=== PATIENT | male | born 1950 | race Hispanic/Latino ===

== ENCOUNTER 2018-03-14 08:15 | Day surgery (SDC) | payer OTHER ==
[2018-03-13 12:10] VITALS: BP 140/82
[2018-03-13 12:20] LABS: BASOPHILS % (AUTO) 1.1 % (0.0-5.0); EOSINOPHILS % (AUTO) 3.2 % (0.0-8.0); HEMATOCRIT 44.3 % (42-54); MEAN CORPUSCULAR HEMOGLOBIN 30.5 pg (27.0-33.0); MEAN CORPUSCULAR HGB CONC 34.2 g/dL (32.0-36.0); MEAN CORPUSCULAR VOLUME 89.3 fL (79-99); MONOCYTES % (AUTO) 8.7 % (3.0-13.0); PLATELET COUNT (AUTO) 244 K/uL (130-400); RED BLOOD CELL COUNT(AUTO) 4.96 MIL/uL (4.50-6.20); RED CELL DISTRIBUTION WIDTH 13.3 % (11.0-15.5)
[2018-03-13 12:28] LABS: APPEARANCE,URINE Clear (CLEAR); BILIRUBIN,URINE Negative (NEGATIVE); COLOR,URINE Yellow (YELLOW); GLUCOSE, URINE (UA) Negative (NEGATIVE); KETONES,URINE Negative (NEGATIVE); LEUKOCYTE ESTERASE ,URINE Negative (NEGATIVE); NITRATE,URINE Negative (NEGATIVE); OCCULT BLOOD,URINE Negative (NEGATIVE); PH,URINE 6.5 (5.0-8.0); PROTEIN,URINE Negative (NEGATIVE); UROBILINOGEN,URINE 0.2 mg/dL (0.2-1.0)
[2018-03-13 12:30] LABS: CREATININE 1.2 mg/dL (0.5-1.5); POTASSIUM 3.7 mmol/L (3.5-5.1)
[2018-03-14] VITALS (23 sets, daily range): BP systolic 105–143; BP diastolic 50–82
[~2018-03-14] VITALS: Ht 181.6 cm; Wt 103.0 kg
[~2018-03-14 08:15] MED LIST: BIOT10004 PO; DILT360C32 PO; HYDR25TA PO; METO25TA6 PO; MULT1TAB70 PO; OMEG-112 PO; OMEP20TA25 PO
[2018-03-14] MEDS ORDERED: PROPOFOL 10 MG/ML 20ML VIAL IV ONE (08:32)
[2018-03-14] MEDS ORDERED: LIDOCAINE PF 2% 5ML ABBOJECT ONE (08:32)
[2018-03-14] MEDS ORDERED: ONDANSETRON HCL 4 MG/2 ML VIAL ONE ×3 (08:32→13:04)
[2018-03-14] MEDS ORDERED: GLYCOPYRROLATE 1 MG/5 ML SYRINGE ONE (08:32)
[2018-03-14] MEDS ORDERED: NEOSTIGMINE 5MG/5ML SYR IV ONE (08:32)
[2018-03-14] MEDS ORDERED: ROCURONIUM 10MG/1ML SYR 10 MG/ML ML ONE (08:33)
[2018-03-14] MEDS ORDERED: FENTANYL CITRATE PF 50 MCG/1 ML 2ML VIAL ONE ×2 (08:33→11:01)
[2018-03-14] MEDS ORDERED: FAMOTIDINE/PF 20 MG/2 ML VIAL IV ONE (08:40)
[2018-03-14] MEDS ORDERED: LACTATED RINGERS 1000ML 1,000 ML IV ONE (08:54)
[2018-03-14] MEDS ORDERED: BUPIVACAINE/PF 0.25% 30ML VIAL IJ ONE (09:09)
[2018-03-14] MEDS ORDERED: [UNRECOGNIZED DRUG - OTHER] IV SCH ×2 (09:15)
[2018-03-14] MEDS ORDERED: PRECEDEX IV SCH ×2 (09:15)
[2018-03-14] MEDS ORDERED: METOCLOPRAMIDE 10 MG/2 ML VIAL ONE (14:15)
[2018-03-14] MEDS ORDERED: IPRATROPIUM/ALBUTEROL SULFATE 3 ML SOLUTION IH PRN (15:00)
[2018-03-14] MEDS ORDERED: ONDANSETRON HCL 4 MG/2 ML VIAL IVP PRN (15:00)
[2018-03-14] MEDS ORDERED: NALOXONE HCL 0.4 MG/1 ML ML IVP PRN (15:00)
[2018-03-14] MEDS ORDERED: METOCLOPRAMIDE 10 MG/2 ML VIAL IVP PRN (15:00)
[2018-03-14] MEDS ORDERED: RACEPINEPHRINE HCL 2.25% 0.5 ML NEB SOLN NEB PRN (15:00)
[2018-03-14] MEDS ORDERED: FENTANYL CITRATE PF 50 MCG/1 ML 2ML VIAL IVP PRN (15:00)
== END 2018-03-14 14:55 | disposition home or self-care (01) ==
LOC: DAH 08:15
PROVIDERS: ATTEND Surgery
DX: K42.9 Umbilical hernia without obstruction or gangrene (principal); I48.91 Unspecified atrial fibrillation; I10 Essential (primary) hypertension; Z85.46 Personal history of malignant neoplasm of prostate; Z98.890 Other specified postprocedural states
CPT/HCPCS: 36415; 49585; 80048; 81003; 85025; 93005; A4450; A4452; A4600; A4606; C1781; J2001; J2405 ×3; J2704; J2710; J2765; J3010 ×2; J3490 ×4; J7120